=== PATIENT | female | born 1990 | race Caucasian/White ===

== ENCOUNTER 2017-11-16 19:48 | Inpatient (IN) | payer BC ==
[~2017-11-16] VITALS: Ht 172.7 cm; Wt 65.8 kg
--- NOTE | 2017-11-16 20:01 | NUR ---
PT AMBULATORY TO ER BED 11. BIBSELF C/O HIGH HR X 4 HOURS. DENIES CP/SOB. 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 VSS/RESP EVEN UNLABORED/NAD NOTED/SKIN WARM AND DRY/AFEBRILE/DENIES N-V-D/AOX4. AWAITING MD HINSON.
--- NOTE | 2017-11-16 20:07 | NUR ---
EMT AT BEDSIDE FOR EKG.
--- NOTE | 2017-11-16 20:34 | NUR ---
XRAY AT BEDSIDE.
--- NOTE | 2017-11-16 20:43 | NUR ---
IV INSERTED LAC 20G, BLOOD SAMPLE SENT TO LAB.
[2017-11-16 20:44] LABS: BASOPHILS # (AUTO) 0.1 /CMM (0.0-0.2); BASOPHILS % (AUTO) 0.7 % (0.0-2.0); EOSINOPHILS % (AUTO) 0.1 % (0.0-6.0); HEMATOCRIT 41 % (33-45); HEMOGLOBIN 14.2 g/dL (11.5-14.8); LYMPHOCYTES # (AUTO) 0.7 /CMM (0.8-4.8); MEAN CORPUSCULAR HGB CONC 34 g/dl (31.0-36.0); MEAN CORPUSCULAR VOLUME 88 fL (82-100); MONOCYTES # (AUTO) 0.6 /CMM (0.1-1.30); MONOCYTES % (AUTO) 5.1 % (2.0-12.0); NEUTROPHILS # (AUTO) 10.4 /CMM (1.8-8.9); NEUTROPHILS % (AUTO) 88.1 % (43.0-81.0); PLATELET COUNT (AUTO) 328 /CMM (150-450); RDW COEFFICIENT OF VARIATION 11.3 (11.5-15.0); RED BLOOD CELL COUNT(AUTO) 4.69 MIL/uL (4.0-5.2); WHITE BLOOD COUNT (AUTO) 11.8 K/uL (4.3-11.0)
[2017-11-16 21:02] LABS: CALCIUM, SERUM 9.4 mg/dL (8.5-10.1); CARBON DIOXIDE 26 mmol/L (21-32); CHLORIDE 103 mmol/L (98-107); CREATININE 0.9 mg/dL (0.6-1.3); GLUCOSE 107 mg/dL (74-106); POTASSIUM 3.6 mmol/L (3.5-5.1); SODIUM SERUM 138 mmol/L (136-145); UREA NITROGEN, BLOOD 12 mg/dL (7-18)
[2017-11-16 21:05] LABS: INR 0.94 (0.87-1.13)
[2017-11-16 21:10] LABS: TROPONIN I < 0.017 ng/mL (0.00-0.056)
[2017-11-16] MEDS ORDERED: IOHEXOL-350 100 ML VIAL IV ONE (21:34)
--- NOTE | 2017-11-16 22:16 | NUR ---
PT SPEAKING WITH FRIEND AT BEDSIDE. VSS. RN WILL CONTINUE TO PROVIDE SAFETY COMFORT MEASURES FOR PATIENT.
[2017-11-17] MEDS ORDERED: MAGNESIUM HYDROXIDE 30 ML UDC PO PRN
[2017-11-17] MEDS ORDERED: ZOLPIDEM TARTRATE 5 MG TABLET PO PRN
[2017-11-17] MEDS ORDERED: Z GUARD REMEDY 2 OZ OINT TP PRN
[2017-11-17] MEDS ORDERED: ENOXAPARIN SODIUM 80 MG/0.8 ML DISP.SYRIN SQ SCH
[2017-11-17] MEDS ORDERED: MORPHINE SULFATE INJ 2 MG/ML DISP.SYRIN IV PRN
[2017-11-17] MEDS ORDERED: ALPRAZOLAM 0.25 MG TABLET PO PRN
[2017-11-17] MEDS ORDERED: ONDANSETRON HCL/PF 4 MG/2 ML VIAL IVP PRN
[2017-11-17] MEDS ORDERED: ACETAMINOPHEN 325 MG TABLET PO PRN
[2017-11-17] MEDS ORDERED: HYDROCODONE/APAP 5/325MG 1 EACH TABLET PO PRN
[2017-11-17] MEDS ORDERED: MAG HYDROX/AL HYDROX/SIMETH 30 ML UDC PO PRN
[2017-11-17] MEDS ORDERED: ALBUTEROL FS 2.5 MG/3 ML VIAL.NEB NEB PRN
--- NOTE | 2017-11-17 00:08 | NUR ---
PATIENT ASSIGNED TO TELE BED 103
[2017-11-17] MEDS ORDERED: ENOXAPARIN SODIUM 60 MG/0.6 ML DISP.SYRIN SQ ONE ×2 (00:13→00:30)
--- NOTE | 2017-11-17 00:23 | NUR ---
REPORT GIVEN TO EMILIA FOR PHANI
--- NOTE | 2017-11-17 00:32 | NUR ---
RN TEL ADMITTING NOTE RECEIVED PT FROM ER REPORT GIVEN BY NERY, 26 YR OLD FEMALE, CC FEELING HIGH HR X4 HRS, "DENIES CP/SOB + N/V. ADMITTED FOR PE, CTA PULMONARY ANGIOGRAM + FOR LT UPPER LOBE FILLING DEFECT. PT AOX4, PT ON RA 96%, BP 146/86, 99,T 97.4 RR 19. DENIES ANY SOB OR DISCOMFORT/CP. ER TX LEVONOX 70MG SQ, NO S/S OF BRUISING OR BLEEDING AT INJX SITE. WITH LAC 20G, STARTED NS @ 75ML/HR, SITE INTACT, WELL SECURED, DR BLANC ADMITTING, WITH ALL ORDERS ENTERED PER PROTOCOL, NO SKIN ISSUES NOTED, PT AMBULATORY, EDUCATED ON PLAN OF CARE, WITH STOOL FOR OCCULT BLOOD PT AWARE, ALL NEEDS MET, WELL SAFETY MEASURES .
[2017-11-17 00:35] VITALS: BP 146/86
[2017-11-17] MEDS: IV NS 0.9% 1,000 ML IV PRN ×2 (02:51→13:58)
[2017-11-17 03:15] LABS: OCCULT BLOOD STOOL NEGATIVE (NEGATIVE)
[2017-11-17 04:00] VITALS: BP 138/77
--- NOTE | 2017-11-17 06:35 | NUR ---
RN TEL CLOSING NOTE PT ENDORSED TO AM SHIFT FOR PHANI, STABLE VS WNL, PT WITH HX; POTS VERY SIGNIFICANT WHEN PROVINDING D/T EPISODES OF TACHYCARDIA, STABILIZES WHEN PT GOES BACK TO BED OR SITS DOWN. ALL NEEDS MET, WILL ENDORSE TO AM SHIFT NURSE TO MONITOR.
[2017-11-17 07:03] LABS: CALCIUM, SERUM 8.7 mg/dL (8.5-10.1); CREATININE 0.8 mg/dL (0.6-1.3); MAGNESIUM 1.9 mg/dL (1.8-2.4); PHOSPHORUS 3.9 mg/dL (2.5-4.9); POTASSIUM 3.6 mmol/L (3.5-5.1)
--- NOTE | 2017-11-17 07:23 | NUR ---
RN NOTES RECEIVED PT FROM DISPENSING OPTICIAN APPRENTICE, A&0X3, ON ROOM AIR NO SOB OR DISTRESS NOTED. SR ON THE TELE LEONARD HR 90. LAC 20G IV SITE INTACT WITH IVF AT 75ML/HR. BED LOCKED AND IN LOWEST POSITION, CALL LIGHT WITHIN REACH, SIDE RAILS UPX3, WILL CONT TO LEONARD.
[2017-11-17 08:00] VITALS: BP 123/61
[2017-11-17 08:13] LABS: BASOPHILS % (AUTO) 0.3 % (0.0-2.0); EOSINOPHILS % (AUTO) 0.1 % (0.0-6.0); HEMATOCRIT 38 % (33-45); HEMOGLOBIN 13.2 g/dL (11.5-14.8); LYMPHOCYTES # (AUTO) 1.1 /CMM (0.8-4.8); MEAN CORPUSCULAR HGB CONC 35 g/dl (31.0-36.0); MEAN CORPUSCULAR VOLUME 88 fL (82-100); MONOCYTES # (AUTO) 0.7 /CMM (0.1-1.30); MONOCYTES % (AUTO) 8.5 % (2.0-12.0); NEUTROPHILS # (AUTO) 6.3 /CMM (1.8-8.9); NEUTROPHILS % (AUTO) 77.1 % (43.0-81.0); PLATELET COUNT (AUTO) 293 /CMM (150-450); RDW COEFFICIENT OF VARIATION 12.7 (11.5-15.0); RED BLOOD CELL COUNT(AUTO) 4.36 MIL/uL (4.0-5.2); WHITE BLOOD COUNT (AUTO) 8.1 K/uL (4.3-11.0)
[2017-11-17 12:00] VITALS: BP 126/93
[2017-11-17] MEDS ORDERED: IOHEXOL-350 100 ML VIAL IV ONE (12:57)
[2017-11-17] MEDS ORDERED: CT SWABBABLE VALVE TRANS SET 1 EA INFUS.SET MC ONE (12:57)
[2017-11-17] MEDS ORDERED: IV NS 0.9% 500 ML IV ONE (12:58)
--- NOTE | 2017-11-17 15:00 | NUR ---
RN NOTES RESULTS OF CT PULM ANGIO NEGATIVE FOR P.E, PER DR BELLAMY OK TO DISCHARGE
[2017-11-17 16:00] VITALS: BP 133/87
--- NOTE | 2017-11-17 17:40 | NUR ---
RN NOTES PT DISCHARGED IN STABLE CONDITION WITH FRIEND AT BEDSIDE.
== END 2017-11-17 17:28 | disposition home or self-care (01) | DRG 308 ==
LOC: ER 19:53 → TELE1 11-17 00:10
PROVIDERS: ADMIT Internal Medicine; ATTEND Internal Medicine
DX: R00.0 Tachycardia, unspecified (principal); I26.99 Other pulmonary embolism without acute cor pulmonale; R65.10 Systemic inflammatory response syndrome (SIRS) of non-infectious origin without acute organ dysfunction; D72.829 Elevated white blood cell count, unspecified; F41.9 Anxiety disorder, unspecified; I49.8 Other specified cardiac arrhythmias
CPT/HCPCS: 36415; 71045-TC; 80048-TC; 82272-TC; 83735-TC; 84100-TC; 84484-TC; 85025-TC; 85378-TC; 85730-TC; 87081-TC; 93307-TC; 93970-TC; A4606; J1650; J7030; J7040; Q9967; Z7610